=== PATIENT | female | born 1990 | race Caucasian/White ===

== ENCOUNTER 2021-03-13 18:31 | Emergency (ER) | payer OTHER ==
[~2021-03-13] VITALS: Ht 154.9 cm; Wt 113.4 kg
[2021-03-13] MEDS ORDERED: FLONASE 0.05%50 MCG NARES (18:41)
[2021-03-13] MEDS ORDERED: ZYRTEC10 M5 PO (18:41)
[2021-03-13 20:11] VITALS: BP 130/74
== END 2021-03-13 20:11 | disposition home or self-care (01) ==
LOC: M.ERS 18:31
DX: S63.657A Sprain of metacarpophalangeal joint of left little finger, initial encounter (principal); Z90.49 Acquired absence of other specified parts of digestive tract; Z79.899 Other long term (current) drug therapy; W19.XXXA Unspecified fall, initial encounter; Y93.89 Activity, other specified; Y92.89 Other specified places as the place of occurrence of the external cause; Y99.8 Other external cause status